=== PATIENT | male | born 1960 | race Two or more races ===

== ENCOUNTER 2020-03-01 13:42 | Outpatient (CLI) | payer OTHER | END 2020-03-01 17:50 | disposition home or self-care (01) | LOC: OFIC 805 13:42 | PROVIDERS: ATTEND Otolaryngology | DX: H93.8X3 Other specified disorders of ear, bilateral (principal); H61.23 Impacted cerumen, bilateral ==

== ENCOUNTER 2020-05-07 15:41 | Outpatient (CLI) | payer OTHER | END 2020-05-07 18:00 | disposition home or self-care (01) | LOC: LAB 15:41 | PROVIDERS: ATTEND Urology | DX: R97.20 Elevated prostate specific antigen [PSA] (principal) ==

== ENCOUNTER 2020-06-27 06:09 | Outpatient (CLI) | payer OTHER | END 2020-06-27 06:13 | disposition home or self-care (01) | LOC: SONOGRAMA 06:09 | PROVIDERS: ATTEND Urology | DX: D29.1 Benign neoplasm of prostate (principal); R97.20 Elevated prostate specific antigen [PSA] ==